=== PATIENT | female | born 1990 | race Two or more races ===

== ENCOUNTER 2016-05-30 08:36 | Emergency (ER) | payer SELFPAY ==
[~2016-05-30] VITALS: Ht 154.9 cm; Wt 40.1 kg
[2016-05-30 09:58] LABS: Basophils # (auto) 0 uL; Basophils % (auto) 0.3 % (0.0-2.0); DEFINITIVE VIEW TRANSMISSION; Eosinophils # (auto) 0 uL; Eosinophils % (auto) 0.4 % (0.0-7.0); Hematocrit 42.2 % (36.0-46.0); Hemoglobin 14.2 g/dL (12.2-16.2); Lymphocytes # (auto) 1.6 uL; Lymphocytes % (auto) 13.8 % (10.0-50.0); Mean Corpuscular Hgb Conc. 33.6 g/dL (32.0-36.0); Mean Corpuscular Volume 80.2 fL (80.0-100.0); Mean Platelet Volume 8.1 fL (7.4-10.4); Monocytes # (auto) 0.6 uL; Monocytes % (auto) 5.1 % (0.0-12.0); Neutrophils # (auto) 9.4 uL; Neutrophils % (auto) 80.4 % (37.0-80.0); Platelet Count (auto) 326 10^3/uL (140-450); White Blood Cell 11.6 10^3/uL (4.4-10.8)
[2016-05-30 10:05] LABS: Albumin 3.8 g/dL (3.4-5.0); BUN/Creatinine Ratio 10.9; Bilirubin, Total 0.5 mg/dL (0.2-1.0); Calcium 9.8 mg/dL (8.5-10.1); Magnesium 2.3 mg/dL (1.6-2.6); Potassium 4.2 mmol/L (3.5-5.1); Total Protein 8.2 g/dL (6.4-8.2)
[2016-05-30] MEDS ORDERED: SODIUM CHLORIDE 0.9% 1,000 ML IVB ONE (11:52)
[2016-05-30 13:15] LABS: Prothrombin Time 10.8 sec (9.37-12.3)
[2016-05-30 13:22] VITALS: BP 154/102
[2016-05-30 14:09] LABS: Urine Bilirubin Negative (Negative); Urine Blood Negative /uL (Negative); Urine Color Yellow (Yellow); Urine Glucose Normal (Normal); Urine Mucus FEW (None Seen); Urine Nitrite Negative (Negative); Urine RBC 8 /hpf (0 - 4); Urine Squamous Epithelial Cell FEW /hpf (<5); Urine Urobilinogen Normal (Negative); Urine WBC Clumps PRESENT /hpf (None Seen)
[2016-05-30 14:10] LABS: Urine Ketone 2+ (Negative)
== END 2016-05-30 15:17 | disposition home or self-care (01) ==
LOC: ER 08:42
DX: O34.11 Maternal care for benign tumor of corpus uteri, first trimester (principal); Z3A.09 9 weeks gestation of pregnancy; R11.2 Nausea with vomiting, unspecified
CPT/HCPCS: 36415; 76801; 80053; 81001; 83735; 84702; 85025; 85610; 85730; 94761; 96360; 99285; J7030

== ENCOUNTER 2016-06-18 10:16 | Emergency (ER) | payer MEDICAID, OTHER ==
[~2016-06-18] VITALS: Ht 154.9 cm; Wt 39.5 kg
[2016-06-18 10:56] LABS: Basophils # (auto) 0 uL; Basophils % (auto) 0.2 % (0.0-2.0); Eosinophils # (auto) 0.1 uL; Eosinophils % (auto) 0.5 % (0.0-7.0); Hemoglobin 14.6 g/dL (12.2-16.2); Lymphocytes # (auto) 1.4 uL; Lymphocytes % (auto) 10.6 % (10.0-50.0); Mean Corpuscular Hemoglobin 27.1 pg (28.0-32.0); Mean Corpuscular Hgb Conc. 33.1 g/dL (32.0-36.0); Mean Corpuscular Volume 82.1 fL (80.0-100.0); Mean Platelet Volume 8.7 fL (7.4-10.4); Monocytes # (auto) 0.4 uL; Monocytes % (auto) 3.2 % (0.0-12.0); Neutrophils # (auto) 11.1 uL; Neutrophils % (auto) 85.5 % (37.0-80.0); Platelet Count (auto) 308 10^3/uL (140-450); Red Cell Distribution Width 14.6 % (11.6-16.0)
[2016-06-18] MEDS ORDERED: SODIUM CHLORIDE 0.9% 1,000 ML IV ONE (11:20)
[2016-06-18] MEDS ORDERED: METOCLOPRAMIDE HCL 5MG/ml INJ 2ml VIAL IV ONE (11:30)
[2016-06-18 12:32] LABS: Urine RBC None Seen /hpf (0 - 4)
[2016-06-18 12:44] LABS: Albumin 3.8 g/dL (3.4-5.0); Bilirubin, Total 0.4 mg/dL (0.2-1.0); Calcium 9.7 mg/dL (8.5-10.1); Potassium 3.7 mmol/L (3.5-5.1); Total Protein 8.3 g/dL (6.4-8.2)
[2016-06-18 13:02] LABS: Urine Bilirubin Negative (Negative); Urine Blood Negative /uL (Negative); Urine Color Yellow (Yellow); Urine Glucose Normal (Normal); Urine Ketone Negative (Negative); Urine Mucus FEW (None Seen); Urine Nitrite Negative (Negative); Urine Squamous Epithelial Cell FEW /hpf (<5); Urine pH 7.5 (5.0-8.0)
[2016-06-18 13:24] VITALS: BP 119/78
== END 2016-06-18 13:31 | disposition home or self-care (01) ==
LOC: ER 10:21
DX: O21.9 Vomiting of pregnancy, unspecified (principal); O16.1 Unspecified maternal hypertension, first trimester; O26.891 Other specified pregnancy related conditions, first trimester; R53.1 Weakness
CPT/HCPCS: 36415; 80053; 81001; 82010; 84702; 85025; 94761; 96361; 96374; 99284; J2765; J7030